=== PATIENT | male | born 1945 | race Caucasian/White ===

== ENCOUNTER 2016-06-18 11:31 | Emergency (ER) | payer OTHER ==
[~2016-06-18] VITALS: Ht 177.8 cm; Wt 103.0 kg
--- NOTE | 2016-06-18 12:58 | ED EYE COMPLAINT ---
History of Present Illness General Chief Complaint: Eye Problems Stated Complaint: RT EYE PAIN AND REDNESS/NAUSEA Source: patient Exam Limitations: no limitations Vital Signs & Intake/Output Vital Signs & Intake/Output Vital Signs Date Time Temp Pulse Resp B/P Pulse O2 O2 Flow FiO2 Ox Delivery Rate 06/18 1602 97.2 90 18 188/92 95 Room Air 06/18 1447 98.2 83 18 188/84 95 Room Air 06/18 1441 98 Room Air 06/18 1141 97.1 73 18 179/100 99 Room Air Allergies Coded Allergies: No Known Allergies (06/18/16) Reconcile Medications Aspirin (Ecotrin*) 81 MG TABLET.DR 1 TAB PO DAILY HEART HEALTH (Reported) Fish Oil/Borage/Flax/Om3,6,9#1 ([place] 3-6-9 1,200 MG Softgel) 1,200 MG CAPSULE 1 CAP PO DAILY HEALTH SUPPLEMENT (Reported) Multivitamin (Multi-Day Vitamins) 1 EACH TABLET 1 TAB PO DAILY HEALTH SUPPLEMENT (Reported) Ondansetron HCl (Zofran) 4 MG TABLET 1 TAB PO Q6-8P PRN NAUSEA Oxycodone HCl/Acetaminophen (Percocet 5-325 MG Tablet) 5 MG-325 MG TABLET 1 TAB PO BID PRN PAIN Prednisolone Acetate (Pred Forte) 1 % DROPS.SUSP 1 GTT OD 4 TIMES/DAY HERPES ZOSTER APPLY 4 TIMES A DAY TO THE RIGHT EYE Valacyclovir Hydrochloride (Valtrex) 500 MG TABLET 1 TAB PO BID HERPES ZOSTER Triage Note: 71 Y/O MALE C/O R EYE REDNESS AND SWELLING SINCE SUNDAY. WAS EVAL'D AT WALK IN SUNDAY AND GIVEN KEFLEX PO AND OFLAXACIN EYE DROPS AND STATES HE HAS BEEN GETTING NAUSEOUS AND VOMITING FROM PO MEDS. R EYE PUFFY AND RED. DENIES INVOLVEMENT OF L EYE Triage Nurses Notes Reviewed? yes Onset: Gradual Duration: constant Timing: recent history Severity: moderate Severity Numbers: 6 HPI: Patient is a 71-year-old male who presents emergency room with a 5 day history of gradual onset of right-sided eye irritation foreign body sensation redness swelling in which she was evaluated at an urgent care facility on June 16 in which it is noted through medical records that he had concerns of right eye conjunctivitis where he was administered and prescribed Keflex and ofloxacin and which she has been on ofloxacin for the past 2 days and feels no better. Patient also states that he had adverse reactions of the Keflex where he had multiple episodes immediately after ingesting 2 doses of the Keflex of nonbloody nonbilious emesis. Patient was able tolerate by mouth last night . Patient also has noted approximately one week history of forehead right-sided skin erythema and pain (KARTIK RENEE) Past History Travel History Traveled to [place] past 21 day No Medical History Any Pertinent Medical History? 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 No (KARTIK RENEE) Review of Systems Review of Systems Constitutional: Reports: see HPI, weakness. Eyes: Reports: see HPI, drainage, foreign body sensation, inflammation, pain. Denies: blurred vision, photophobia, previous injury, shadows, vision change, contact lenses, glasses. Ear: Reports: no symptoms. Nose: Reports: no symptoms. Mouth: Reports: no symptoms. Throat: Reports: no symptoms. Respiratory: Reports: no symptoms. Cardiovascular: Reports: no symptoms. GI: Reports: see HPI, nausea, vomiting. Denies: abdominal pain. Genitourinary: Reports: no symptoms. Musculoskeletal: Reports: no symptoms. Skin: Reports: no symptoms. Neurological/Psychological: Reports: no symptoms. Hematologic/Endocrine: Reports: no symptoms. Immunologic/Allergic: Reports: no symptoms. All Other Systems: Reviewed and Negative (KARTIK RENEE) Physical Exam General Appearance: well developed/nourished, no apparent distress, alert, awake , comfortable General Inspection: normal inspection Eyelid: normal inspection Conjunctiva/Sclera: normal inspection Cornea: normal inspection EOM: intact Pupil: normal accommodation, normal pupil, PERRL Anterior Chamber: normal inspection General Inspection: SEE DIAGRAM Eyelid: normal inspection Conjunctiva/Sclera: see diagram Cornea: examined w/fluorescein EOM: intact Pupil: normal accommodation, normal pupil, PERRL Anterior Chamber: see diagram Eye Right 1) 2) FLUOROSCEINE uptake noted 3) Multiple scattered circular FLUOROSCEINE uptake noted Physical Exam Head: NOTED RIGHT-SIDED FOREHEAD PATCHY ERYTHEMATOUS RASH WITH MILD SCATTERED VESICLES Ears: Bilateral: canal normal, Tympanic normal. Nose: normal inspection Mouth/Throat: normal mouth inspection, pharynx normal Neck: normal inspection, supple, full range of motion Cardiovascular/Respiratory: normal breath sounds, normal peripheral pulses, regular rate/rhythm, no respiratory distress Neurologic/Psych: no motor/sensory deficits, awake, alert, oriented x 3, normal gait, normal mood/affect Skin: intact, normal color, warm/dry Comments: Right eye-noted conjunctival injection no foreign body Noted inferior lid swelling no surrounding erythema or warmth PERRLA (KARTIK RENEE) Progress Differential Diagnosis: corneal abrasion, corneal foreign body, conjunctivitis, detached retina, glaucoma, globe rupture, retinal art./v. occlusion, UVEITIS, HERPES OPTHALMIC HERPES ZOSTER, ACUTE GLAUCOMA Plan of Care: Orders Procedure Date/time Status COMPREHENSIVE METABOLIC PANEL 06/18 1325 Complete CBC WITHOUT DIFFERENTIAL 06/18 1325 Complete Current Medications Sig/Girish Start time Last Medication Dose Stop Time Status Admin Ondansetron HCl 4 MG ONCE ONE 06/18 1315 CAN (Zofran) 06/18 1316 Laboratory Tests 06/18/16 1342: Anion Gap 11, Estimated GFR > 60, BUN/Creatinine Ratio 15.7, Glucose 107 H, Calcium 9.4, Total Bilirubin 0.7, AST 30, ALT 38, Alkaline Phosphatase 74, Total Protein 7.6, Albumin 4.3, Globulin 3.3, Albumin/Globulin Ratio 1.3, CBC w Diff NO MAN DIFF REQ, RBC 5.41, MCV 88.0, MCH 29.2, RDW 13.9, MPV 8.4, Gran % 85.4 H , Lymphocytes % 8.5 L, Monocytes % 5.8, Eosinophils % 0.1, Basophils % 0.2, Absolute Granulocytes 9.3 H, Absolute Lymphocytes 0.9 L, Absolute Monocytes 0.6, Absolute Eosinophils 0, Absolute Basophils 0, PUBS MCHC 33.2 Patient initially was given tetracaine drops for relief of eye pain Patient did have noted FLOUROSCEINE uptake and see diagram for details. Patient does have concerns of herpes zoster infection of for head and of the right eye. Discussed patient with plate glass installer Dr. WHITTAKER who advised patient to begin Valtrex 500 twice a day and prednisone acetate 4 times a day and to follow-up in his office tomorrow. Patient initially was given morphine for pain to the right eye Patient was able tolerate by mouth CT scan was unremarkable and no concerns of orbital cellulitis or periorbital cellulitis Discussed disposition plan with Dr. Chase who agrees (KARTIK RENEE) Diagnostic Imaging: Viewed by Me: CT Scan. Radiology Impression: no acute abnormality Comments: PATIENT: JHONATAN ROSALES PRESENT AGE: 71 PATIENT ACCOUNT NO: [id number] : 43 LOCATION: [facility] ORDERING PHYSICIAN: KARTIK DOHERTY SERVICE DATE: 06/18/16 EXAM TYPE: CAT - CT ORBITS W IV CONTRAST EXAMINATION: CT ORBIT WITH CONTRAST CLINICAL INFORMATION: Right-sided pain, redness, and swelling COMPARISON: None TECHNIQUE: CT scanning of the orbits was performed after the uneventful administration of 94 mL of Optiray 320 intravenous contrast. Coronal and sagittal reformatted images were generated. DLP: 205 mGy-cm FINDINGS: The globes and ocular lenses appear unremarkable. There is no stranding of the retrobulbar fat. The extraocular muscles appear symmetric in attenuation and caliber. The optic nerve sheath complexes appear symmetric. The superior ophthalmic veins appear normal. There is asymmetric mild thickening of the right superior eyelid relative to the left and mild asymmetric prominence of the fat within the inferior right eyelid relative to the left. The lacrimal glands appear unremarkable. No drainable fluid collections. The visualized intracranial structures appear unremarkable. The cavernous sinuses and Meckel's caves are unremarkable in appearance. The imaged paranasal sinuses, nasal cavity, nasopharynx are clear. The mastoid air cells and middle ear cavities are clear. The temporomandibular joints articulate normally. IMPRESSION: Mild asymmetric soft tissue thickening involving the right superior eyelid relative to the left. No retrobulbar abnormalities. The globes, extraocular muscles, and orbital fat are intact. (KARTIK RENEE) Departure Departure Disposition: HOME OR SELF CARE Condition: Stable Clinical Impression Primary Impression: Acute right eye pain Secondary Impressions: Herpes zoster conjunctivitis, Herpes zoster dermatitis Referrals: PATIENT HAS NO PRIMARY CARE DR (PCP/Family) PANFILO SALAZAR,JOSE LUIS Cummings Additional Instructions: DISCUSSED BEGIN THE PRESCRIPTION OF PREDNISONE DROPS AND VALTREX DIRECTED, BEGIN THE PRESCRIPTION OF PERCOCET FOR BREAK THROUGH PAIN RELIEF TOMORROW, FIRST THING, CALL OPTHALMALOGIST DR WHITTAKER FOR FURTHER EVALUATION AND TREATMENT PRESCRIPTIONS ARE WAITING AT YOUR PHARMACY IF SYMPTOMS WORSEN, RETURN TO THE ER. Departure Forms: Customer Survey General Discharge Information Prescriptions: Current Visit Scripts Oxycodone HCl/Acetaminophen (Percocet 5-325 MG Tablet) 1 TAB PO BID PRN PAIN #8 TAB Valacyclovir Hydrochloride (Valtrex) 1 TAB PO BID #14 TAB Prednisolone Acetate (Pred Forte) 1 GTT OD 4 TIMES/DAY #10 ML APPLY 4 TIMES A DAY TO THE RIGHT EYE Ondansetron HCl (Zofran) 1 TAB PO Q6-8P PRN NAUSEA #15 TAB (KARTIK RENEE) PA/CASING IN LINE SETTER Co-Sign Statement Statement: ED Attending supervision documentation- [X] I saw and evaluated the patient. I have also reviewed all the pertinent lab results and diagnostic results. I agree with the findings and the plan of care as documented in the PA's/CASING IN LINE SETTER's documentation. [X] I have reviewed the ED Record and agree with the PA's/CASING IN LINE SETTER's documentation. [] Additions or exceptions (if any) to the PAs/CASING IN LINE SETTER's note and plan are summarized below: [] (CLAUDIA SALAZAR,PRAAMJIT Peña)
[2016-06-18 13:53] LABS: ABSOLUTE BASOPHIL COUNT 0 /CUMM (0.0-0.2); ABSOLUTE EOSINOPHIL COUNT 0 /CUMM (0.0-0.7); ABSOLUTE GRANULOCYTE CT 9.3 /CUMM (1.4-6.5); ABSOLUTE LYMPH COUNT 0.9 /CUMM (1.2-3.4); ABSOLUTE MONOCYTE COUNT 0.6 /CUMM (0.10-0.60); BASOPHIL % 0.2 % (0.0-2.0); EOSINOPHIL % 0.1 % (0-5); GRANULOCYTE % 85.4 % (42.2-75.2); HEMATOCRIT 47.6 % (42-52); MEAN CORPUSCULAR HGB 29.2 PG (27.0-31.0); MEAN CORPUSCULAR HGB CONC 33.2 G/DL (33.0-37.0); MEAN PLATELET VOLUME 8.4 FL (7.4-10.4); PLATELET COUNT 279 /CUMM (130-400); RBC DISTRIBUTION WIDTH 13.9 % (11.5-14.5); RED BLOOD CELL CT 5.41 /CUMM (4.70-6.10); WHITE BLOOD CELL COUNT 10.9 /CUMM (4.8-10.8)
[2016-06-18] MEDS ORDERED: ASPIRIN EC81 M1 PO (14:46)
[2016-06-18] MEDS ORDERED: OMEGA 3-6-9 11200 MG PO (14:47)
[2016-06-18] MEDS ORDERED: MULTI-DAY VITA1 EACH PO (14:47)
--- NOTE | 2016-06-18 15:41 | CT SCAN REPORT ---
EXAMINATION: CT ORBIT WITH CONTRAST CLINICAL INFORMATION: Right-sided pain, redness, and swelling COMPARISON: None TECHNIQUE: CT scanning of the orbits was performed after the uneventful administration of 94 mL of Optiray 320 intravenous contrast. Coronal and sagittal reformatted images were generated. DLP: 205 mGy-cm FINDINGS: The globes and ocular lenses appear unremarkable. There is no stranding of the retrobulbar fat. The extraocular muscles appear symmetric in attenuation and caliber. The optic nerve sheath complexes appear symmetric. The superior ophthalmic veins appear normal. There is asymmetric mild thickening of the right superior eyelid relative to the left and mild asymmetric prominence of the fat within the inferior right eyelid relative to the left. The lacrimal glands appear unremarkable. No drainable fluid collections. The visualized intracranial structures appear unremarkable. The cavernous sinuses and Meckel's caves are unremarkable in appearance. The imaged paranasal sinuses, nasal cavity, nasopharynx are clear. The mastoid air cells and middle ear cavities are clear. The temporomandibular joints articulate normally. IMPRESSION: Mild asymmetric soft tissue thickening involving the right superior eyelid relative to the left. No retrobulbar abnormalities. The globes, extraocular muscles, and orbital fat are intact.
[2016-06-18] MEDS ORDERED: VALTREX500 M1 PO (15:50)
[2016-06-18] MEDS ORDERED: PERCOCET 5-3251 EACH PO (15:50)
[2016-06-18] MEDS ORDERED: PRED FORTE1 ML OD (15:50)
[2016-06-18 16:02] VITALS: BP 188/92
[2016-06-18] MEDS ORDERED: ZOFRAN4 M2 PO (16:05)
== END 2016-06-18 16:13 ==
LOC: ERH 11:31
PROVIDERS: Physician Assistant
DX: B02.31 Zoster conjunctivitis (principal); B02.9 Zoster without complications
CPT/HCPCS: 96374; 96375; J2405; J3101

== ENCOUNTER 2016-07-19 14:19 | Emergency (ER) | payer OTHER ==
[~2016-07-19] VITALS: Ht 177.8 cm; Wt 103.0 kg
[~2016-07-19 14:19] MED LIST: ASPIRIN EC81 M1 PO; MULTI-DAY VITA1 EACH PO; OMEGA 3-6-9 11200 MG PO; PERCOCET 5-3251 EACH PO; PRED FORTE1 ML OD; VALTREX500 M1 PO; ZOFRAN4 M2 PO
--- NOTE | 2016-07-19 15:13 | ED EYE COMPLAINT ---
History of Present Illness General Chief Complaint: Eye Problems Stated Complaint: SENT BY EYE DR FOR EVAL OF RT EYE SWELLING Source: patient, old records Exam Limitations: no limitations Vital Signs & Intake/Output Vital Signs & Intake/Output Vital Signs Date Time Temp Pulse Resp B/P B/P Pulse O2 O2 Flow FiO2 Mean Ox Delivery Rate 07/19 1907 99.0 99 18 166/100 95 Room Air 07/19 1701 89 16 170/80 95 Room Air 07/19 1449 98.0 108 20 189/130 98 Room Air Allergies Coded Allergies: cephalexin (UNKNOWN 07/19/16) Reconcile Medications Fish Oil/Borage/Flax/Om3,6,9#1 ([place] 3-6-9 1,200 MG Softgel) 1,200 MG CAPSULE 1 CAP PO DAILY HEALTH SUPPLEMENT (Reported) Multivitamin (Multi-Day Vitamins) 1 EACH TABLET 1 TAB PO DAILY HEALTH SUPPLEMENT (Reported) Prednisolone Acetate (Pred Forte) 1 % DROPS.SUSP 1 GTT OD BID EYE (Reported) Triage Note: PT TO ED C/O RIGHT EYE PAIN AND SWELLING. PT STATES HE HAS SHINGLES IN HIS EYE WITH NERVE PARALYSIS. PT SENT TO ED BY DR HINOJOSA. PT STATES ? INFECTION IN RIGHT EYE. Triage Nurses Notes Reviewed? 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 Patient is recently diagnosed with zoster ophthalmicus with complicating nerve palsy. He is sent in for CAT scan to rule out proptosis. The patient has been on prednisone drops and just finished a course of Valtrex yesterday. No fever no chills. He reports of blurry vision in his right eye, he denies any left eye association he reports intermittent episodes of waxing and waning mild to moderate pain. No vision loss no headaches. He states the rashes to his face have resolved (KARTIK AUGUSTINE) Past History Travel History Traveled to [place] past 21 day No Medical History Any Pertinent Medical History? 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 No (KARTIK AUGUSTINE) Review of Systems Review of Systems Constitutional: Reports: see HPI. All Other Systems: Reviewed and Negative Comments Review of systems: See HPI, All other systems negative. Constitutional, no chills no fever, no malaise HEENT: no sore throat no congestion Cardiovascular: No chest pain , no palpitation Skin: no rashes, no change in skin Respiratory: No dyspnea no cough no sputum GI: No nausea no vomiting, no diarrhea : No dysuria Muscle skeletal: No joint pain, no joint swelling, no back pain, no neck pain, Neurologic: No numbness no confusion, no headache Psych: No stress n Heme/endocrine: No bruising no bleeding Immunology: No lymphadenopathy (KARTIK AUGUSTINE) Physical Exam General Appearance: well developed/nourished, no apparent distress General Inspection: normal inspection Eyelid: normal inspection Conjunctiva/Sclera: normal inspection Cornea: normal inspection EOM: intact Pupil: normal accommodation, normal pupil, PERRL General Inspection: periorbital swelling Eyelid: edema Conjunctiva/Sclera: injected EOM: intact Physical Exam Comments: Well-developed well-nourished person in no acute distress Head/Face: Atraumatic, no maxillary/frontal sinus tenderness, no facial swelling Eyes: PERRL, EOMI Ear:External auditory canals clear, no erythema, no FB. Nose: atraumatic.Normal inspection Throat: Moist mucous membranes.Pharynx normal. No pharyngeal erythema/exudate seen. No stridor/drooling or assymetry. No swelling or edema. Neck: Supple, FROM Back: Nontender, Full range of motion Cardiovascular: Regular rate and rhythms no murmurs rubs Respiratory: No respiratory distress. Patient speaking in full complete sentences. Breath sounds clear to auscultation bilaterally: NO W/R/R Extremity: No edema, full range of motion of extremities, Neuro: Alert oriented x3, motor sensory normal, cranial nerves II through XII grossly intact. There were no obvious focal neurologic abnormalities. Skin: No appreciable rash on exposed skin, skin is warm and dry. Psych: Mood and affect is normal, memory and judgment is normal. (KARTIK AUGUSTINE) Progress Differential Diagnosis: corneal abrasion, corneal foreign body, conjunctivitis, detached retina, glaucoma, zoster ophtahlimcus, cva, optic neuritis, orbital apex syndrome, acute retinal necrosis Plan of Care: Orders Procedure Date/time Status BLOOD CULTURE 07/19 1533 Active COMPREHENSIVE METABOLIC PANEL 07/19 153 Complete CBC WITHOUT DIFFERENTIAL 07/19 153 Complete Laboratory Tests 07/19/16 1556: Anion Gap 10, Estimated GFR > 60, BUN/Creatinine Ratio 14.3, Glucose 102 H, Calcium 9.1, Total Bilirubin 0.5, AST 21, ALT 63, Alkaline Phosphatase 79, Total Protein 6.7, Albumin 3.7, Globulin 3.0, Albumin/Globulin Ratio 1.2, CBC w Diff NO MAN DIFF REQ, RBC 5.31, MCV 91.0, MCH 29.8, RDW 15.5 H, MPV 7.9, Gran % 70.5 , Lymphocytes % 19.1 L, Monocytes % 7.9, Eosinophils % 1.8, Basophils % 0.7, Absolute Granulocytes 9.0 H, Absolute Lymphocytes 2.4, Absolute Monocytes 1.0 H, Absolute Eosinophils 0.2, Absolute Basophils 0.1, PUBS MCHC 32.7 L Microbiology 07/19 1621 BLOOD: Blood Culture - RECD 07/19 1556 BLOOD: Blood Culture - RECD Labs ordered old records. CAT scan ordered I discussed the case with case discussed with Dr. Moreno agrees with plan 07/19/2016 4:35:[address] BROWN IN DEPT TO EVALUATE PT. pending ct I discussed the results of the CAT scan with the patient and his as well as Dr. brown and dr moreno we will defer prednisone for dr hinojosa decision. I discussed with the patient at length all of their results. I had an extensive conversation regarding need for close follow up with Dr. smith tomorrowas well as return precautions. I answered all of their questions, they feel comfortable with the plan and follow-up care. D/W DR SMITH ct results, will f/u with pt in regards to need for mri (KARTIK AUGUSTINE) Diagnostic Imaging: Viewed by Me: CT Scan. Discussed w/RAD: CT Scan. Radiology Impression: PATIENT: JHONATAN ROSALES PRESENT AGE: 71 PATIENT ACCOUNT NO: [id number] : 43 LOCATION: [facility] ORDERING PHYSICIAN: KARTIK DOHERTY SERVICE DATE: 07/19/16 EXAM TYPE: CAT - CT HEAD ANGIOGRAM EXAMINATION: CT ANGIOGRAM HEAD CLINICAL INFORMATION: Blown right pupil. Recent zoster with question of right orbital abscess. COMPARISON: None TECHNIQUE: Test bolus sequences followed by intravenous administration 95 mL of Optiray 320 intravenous contrast. Helical imaging was performed in the axial plane from the the skull base to the vertex. Delayed postcontrast imaging of the head was also performed. The data was processed at the systems technologist's workstation for generation of MIP sequences. Three-dimensional volume rendered reformatted images were also generated at an offline 3-D workstation. DLP: 2222.31 mGy-cm FINDINGS: HEAD: No intracranial mass, intercerebral edema, hemorrhage, or midline shift is evident. The ventricles and sulci are stable in size and configuration. Very mild chronic white matter microangiopathic changes are noted. No extra-axial collections are appreciated. The paranasal sinuses are well aerated and clear. No intraorbital or periorbital fluid collection is seen. CRANIAL CTA: There is normal opacification of the major intracranial vessels. No acute proximal large vessel occlusion, focal flow-limiting stenosis, or saccular intracranial aneurysm is identified. There is a small fenestration in the ACOM segment with the left A2 segment. No abnormal parenchymal enhancement or regional oligemia is visualized. IMPRESSION: Normal CT angiogram of the head. No acute process. No abnormal right-sided periorbital or intraorbital fluid collection. DICTATED BY: PARAMJIT BLAND MD DATE/TIME DICTATED:07/19/161819 METER ENGINEER:DEBBIE DATE/TIME TRANSCRIBED:1819 CONFIDENTIAL, DO NOT COPY WITHOUT APPROPRIATE AUTHORIZATION. < Electronically signed in Other Vendor System> SIGNED BY: PARAMJIT BLAND MD 07/19/161841 (KARTIK AUGUSTINE) Departure Departure Time of Disposition: 1902 Disposition: HOME OR SELF CARE Condition: Stable Clinical Impression Primary Impression: Zoster ophthalmicus Referrals: PATIENT HAS NO PRIMARY CARE DR (PCP/Family) KARTIK HINOJOSA MD Additional Instructions: follow up with dr hinojosa tomorrow. continue the medications you are currently on. return to the ER with any concerns Departure Forms: Customer Survey General Discharge Information (JO DOHERTY,KARTIK) PA/AMF MECHANIC Co-Sign Statement Statement: ED Attending supervision documentation- [] I saw and evaluated the patient. I have also reviewed all the pertinent lab results and diagnostic results. I agree with the findings and the plan of care as documented in the PA's/AMF MECHANIC's documentation. [X] I have reviewed the ED Record and agree with the PA's/AMF MECHANIC's documentation. [] Additions or exceptions (if any) to the PAs/AMF MECHANIC's note and plan are summarized below: [] (EDMOND SALAZAR,PATRICIO)
[2016-07-19] MEDS ORDERED: PRED FORTE1 ML OD (15:17)
[2016-07-19 16:04] LABS: ABSOLUTE BASOPHIL COUNT 0.1 /CUMM (0.0-0.2); ABSOLUTE EOSINOPHIL COUNT 0.2 /CUMM (0.0-0.7); ABSOLUTE LYMPH COUNT 2.4 /CUMM (1.2-3.4); BASOPHIL % 0.7 % (0.0-2.0); EOSINOPHIL % 1.8 % (0-5); GRANULOCYTE % 70.5 % (42.2-75.2); HEMATOCRIT 48.4 % (42-52); MEAN CORPUSCULAR HGB 29.8 PG (27.0-31.0); MEAN CORPUSCULAR HGB CONC 32.7 G/DL (33.0-37.0); MEAN PLATELET VOLUME 7.9 FL (7.4-10.4); PLATELET COUNT 335 /CUMM (130-400); RBC DISTRIBUTION WIDTH 15.5 % (11.5-14.5); RED BLOOD CELL CT 5.31 /CUMM (4.70-6.10); WHITE BLOOD CELL COUNT 12.8 /CUMM (4.8-10.8)
--- NOTE | 2016-07-19 17:41 | Cons- Infect Disease ---
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 one month prior to admission after presenting to the emergency room, after he was initially diagnosed at a walk-in clinic with conjunctivitis and treated with Keflex and ofloxacin eyedrops, discharged on Valtrex and steroid eyedrops for 1 week, with a CT of the orbits revealing mild asymmetric soft tissue thickening involving the right superior eyelid, with no retro-bulbar abnormalities, followed by Ophthalmology since then , with the development of an ophthalmoplegia and chemosis, with some decreased visual acuity, and with persistent right periorbital pain, extending to the scalp, with the course of Valtrex extended until today, seen by Neurology and begun on a 5 day course of steroids, which was completed 2 days ago, referred to the emergency room today because of the finding of proptosis by the 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 He continues to complain of pain in the eye and periorbitally, extending up to the scalp, and excessive tearing. His periorbital lesions have resolved. He has no fevers, chills or other constitutional symptoms. Allergies/Medications Allergies: Coded Allergies: cephalexin (UNKNOWN 07/19/16) Home Med List: Fish Oil/Borage/Flax/Om3,6,9#1 ([place] 3-6-9 1,200 MG Softgel) 1,200 MG CAPSULE 1 CAP PO DAILY HEALTH SUPPLEMENT (Reported) Multivitamin (Multi-Day Vitamins) 1 EACH TABLET 1 TAB PO DAILY HEALTH SUPPLEMENT (Reported) Prednisolone Acetate (Pred Forte) 1 % DROPS.SUSP 1 GTT OD BID EYE (Reported) Past History Travel History Traveled to [place] past 21 day No Medical History Neurological: NONE EENT: NONE Cardiovascular: NONE Respiratory: NONE Gastrointestinal: NONE Hepatic: NONE Renal: NONE Musculoskeletal: NONE Psychiatric: NONE Endocrine: NONE Blood Disorders: NONE Cancer(s): 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 Surgical History Surgical History: non-contributory Psychosocial History ETOH Use: denies use Illicit Drug Use: denies illicit drug use Review of Systems Review of Systems All Other Systems: Reviewed and Negative Exam & Diagnostic Data Last 24 Hrs of Vital Signs/I&O Vital Signs Date Time Temp Pulse Resp B/P B/P Pulse O2 O2 Flow FiO2 Mean Ox Delivery Rate 07/19 1701 89 16 170/80 95 Room Air 07/19 1449 98.0 108 20 189/130 98 Room Air Intake & Output 07/19 1600 07/19 0800 07/19 0000 Intake Total Output Total Balance Patient 227 lb Weight Weight Estimated Measurement Method Physical Exam Other Physical Findings: He is awake and alert in no acute distress. He is afebrile. Skin reveals no rash. HEENT exam anisocoria with a dilated right pupil, right eye ptosis, with conjunctival hyperemia and chemosis, with tearing; mild residual erythema over the right periorbital area. Neck is supple with no adenopathy. Lungs are clear. Heart regular rhythm with no murmur. Abdomen is soft, nontender with positive bowel sounds. Back no CVA tenderness. Extremities no cyanosis, clubbing or edema. Neuro right ophthalmoplegia, with no abduction and limited adduction, suggesting third and sixth nerve palsies. Last 24 Hours of Lab Results: Laboratory Tests 07/19 1556 Chemistry Sodium (137 - 145 mmol/L) 133 L Potassium (3.5 - 5.1 mmol/L) 4.0 Chloride (98 - 107 mmol/L) 95 L Carbon Dioxide (22 - 30 mmol/L) 28 Anion Gap (5 - 16) 10 BUN (9 - 20 mg/dL) 10 Creatinine (0.7 - 1.2 mg/dL) 0.7 Estimated GFR (>60 ml/min) > 60 BUN/Creatinine Ratio (7 - 25 %) 14.3 Glucose (65 - 99 mg/dL) 102 H Calcium (8.4 - 10.2 mg/dL) 9.1 Total Bilirubin (0.2 - 1.3 mg/dL) 0.5 AST (17 - 59 U/L) 21 ALT (21 - 72 U/L) 63 Alkaline Phosphatase (< 127 U/L) 79 Total Protein (6.3 - 8.2 g/dL) 6.7 Albumin (3.5 - 5.0 g/dL) 3.7 Globulin (1.9 - 4.2 gm/dL) 3.0 Albumin/Globulin Ratio (1.1 - 2.2 %) 1.2 Hematology CBC w Diff NO MAN DIFF REQ WBC (4.8 - 10.8 /CUMM) 12.8 H RBC (4.70 - 6.10 /CUMM) 5.31 Hgb (14.0 - 18.0 G/DL) 15.8 Hct (42 - 52 %) 48.4 MCV (80.0 - 94.0 FL) 91.0 MCH (27.0 - 31.0 PG) 29.8 RDW (11.5 - 14.5 %) 15.5 H Plt Count (130 - 400 /CUMM) 335 MPV (7.4 - 10.4 FL) 7.9 Gran % (42.2 - 75.2 %) 70.5 Lymphocytes % (20.5 - 51.1 %) 19.1 L Monocytes % (1.7 - 9.3 %) 7.9 Eosinophils % (0 - 5 %) 1.8 Basophils % (0.0 - 2.0 %) 0.7 Absolute Granulocytes (1.4 - 6.5 /CUMM) 9.0 H Absolute Lymphocytes (1.2 - 3.4 /CUMM) 2.4 Absolute Monocytes (0.10 - 0.60 /CUMM) 1.0 H Absolute Eosinophils (0.0 - 0.7 /CUMM) 0.2 Absolute Basophils (0.0 - 0.2 /CUMM) 0.1 PUBS MCHC (33.0 - 37.0 G/DL) 32.7 L Last 24 Hours of Severo Results: Blood cultures July 19 pending Assessment/Plan Assessment/Plan Impression: This is a 71-year-old man with no significant past medical history, 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 It may respond to steroids and antivirals, though, as he has been treated with antivirals for the past month, doubt that there would be any benefit to restarting them now. He has been on steroids for the past week, and continuation of the steroids may be beneficial and could be considered. Other complications of herpes zoster ophthalmicus include acute retinal necrosis and optic neuritis, but neither is felt to be present by the airborne mission systems superintendent. Other causes of proptosis, including orbital cellulitis, need to be considered but seem less likely. Suggestion: 1. Await CT/CT angiogram of the head 2. Would pursue MRI of the head 3. Would consider continuation of steroids, but would defer to Ophthalmology 4. Would follow off antibiotics pending above Consult Acknowledgment - Thank you for your consult request.
--- NOTE | 2016-07-19 18:42 | CT SCAN REPORT ---
EXAMINATION: CT ANGIOGRAM HEAD CLINICAL INFORMATION: Blown right pupil. Recent zoster with question of right orbital abscess. COMPARISON: None TECHNIQUE: Test bolus sequences followed by intravenous administration 95 mL of Optiray 320 intravenous contrast. Helical imaging was performed in the axial plane from the the skull base to the vertex. Delayed postcontrast imaging of the head was also performed. The data was processed at the cytogenetic technologist's workstation for generation of MIP sequences. Three-dimensional volume rendered reformatted images were also generated at an offline 3-D workstation. DLP: 2222.31 mGy-cm FINDINGS: HEAD: No intracranial mass, intercerebral edema, hemorrhage, or midline shift is evident. The ventricles and sulci are stable in size and configuration. Very mild chronic white matter microangiopathic changes are noted. No extra-axial collections are appreciated. The paranasal sinuses are well aerated and clear. No intraorbital or periorbital fluid collection is seen. CRANIAL CTA: There is normal opacification of the major intracranial vessels. No acute proximal large vessel occlusion, focal flow-limiting stenosis, or saccular intracranial aneurysm is identified. There is a small fenestration in the ACOM segment with the left A2 segment. No abnormal parenchymal enhancement or regional oligemia is visualized. IMPRESSION: Normal CT angiogram of the head. No acute process. No abnormal right-sided periorbital or intraorbital fluid collection.
[2016-07-19 19:07] VITALS: BP 166/100
== END 2016-07-19 19:18 ==
LOC: ERH 14:19
PROVIDERS: Physician Assistant Medical
DX: B02.30 Zoster ocular disease, unspecified (principal)
CPT/HCPCS: 87040